=== PATIENT | male | born 1955 | race American Indian/Alaskan Native ===

== ENCOUNTER 2017-08-17 21:59 | Emergency (ER) | payer MEDICARE, MEDICAID ==
[2017-08-17] MEDS ORDERED: Acetaminophen/oxyCODONE 325-5 MG Tab PO ONE (22:00)
[2017-08-17] MEDS ORDERED: Ondansetron 4 MG Tab.DIS PO ONE (22:00)
[2017-08-18 00:50] VITALS: BP 143/99
[2017-08-18] MEDS ORDERED: Sodium Chloride 0.9% 1,000 ML IV ONE (01:12)
[2017-08-18] MEDS ORDERED: Iopamidol 612 MG/ML 75 ML Bottle IVPUSH ONE (01:18)
[2017-08-18] MEDS ORDERED: Ondansetron 4 MG/2 ML SDV IV ONE (01:29)
[2017-08-18] MEDS ORDERED: HYDROmorphone 1 MG/ML Syringe IVPUSH ONE (01:30)
[2017-08-18 01:53] LABS: CHLORIDE,CL 105 mmol/L (101-111); SODIUM,NA 138 mmol/L (135-145)
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
[2017-08-18] MEDS ORDERED: Ondansetron 4 MG Tab.DIS ONE (03:11)
[2017-08-18] MEDS ORDERED: Acetaminophen/oxyCODONE 325-5 MG Tab ONE (03:11)
== END 2017-08-18 03:20 | disposition home or self-care (01) ==
LOC: DL.ED 21:59
DX: K40.90 Unilateral inguinal hernia, without obstruction or gangrene, not specified as recurrent (principal); I10 Essential (primary) hypertension; J45.909 Unspecified asthma, uncomplicated; F17.210 Nicotine dependence, cigarettes, uncomplicated; K44.9 Diaphragmatic hernia without obstruction or gangrene; Z88.6 Allergy status to analgesic agent; Z79.899 Other long term (current) drug therapy; Z91.018 Allergy to other foods
CPT/HCPCS: 36415; 74177; 80053; 83605; 85025; 96361; 96374; 96375; 99284; A9270; J1170; J2405; J7030; Q9967; 99283

== ENCOUNTER 2018-12-15 20:07 | Emergency (ER) | payer MEDICARE, MEDICAID ==
--- NOTE | 2018-12-15 20:47 | EDM.PDOC ---
ED HPI GENERAL MEDICAL PROBLEM - General Chief Complaint: Genitourinary Problem Stated Complaint: KIDNEY PAIN [id number] Time Seen by Provider: 12/15/18 20:40 Source of Information: Reports: Patient History Limitations: Reports: No Limitations - History of Present Illness INITIAL COMMENTS - FREE TEXT/NARRATIVE: states hadn't been feeling well for a week, feels sick been having F/C on-off, also hard to urinate, h/o back pain taking Rx. sister state went to check on him and found him in bed still. Lower Back Pain Score (Numeric/FACES): 6 - Related Data Allergies Allergy/AdvReac Type Severity Reaction Status Date / Time ibuprofen Allergy Other Verified 12/15/18 20:31 pineapple Allergy Hives Verified 12/15/18 20:31 Home Meds: Home Meds Albuterol Sulfate [Proair Hfa] 2 puff INH Q4HR PRN 05/07/16 [History] Bimatoprost [LUMIGAN 0.01% Ophth Soln] 1 drop EYEBOTH BEDTIME 05/07/16 [History] Hydrochlorothiazide 25 mg PO DAILY 05/07/16 [History] Metoprolol Succinate 50 mg PO DAILY 05/07/16 [History] Zolpidem [Ambien] 10 mg PO BEDTIME 05/07/16 [History] amLODIPine [Norvasc] 5 mg PO DAILY 05/07/16 [History] oxyCODONE HCl [Oxycodone HCl] 15 mg PO QID PRN 05/07/16 [History] Esomeprazole Magnesium [Nexium] 40 mg PO BID 12/04/16 [History] Acetaminophen 1 - 2 tab PO Q4H PRN 12/14/16 [History] Past Medical History HEENT History: Reports: Other (See Below) 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 Cardiovascular History: Reports: Hypertension Respiratory History: Reports: Asthma Gastrointestinal History: Reports: GI Bleed, Other (See Below) Other Gastrointestinal History: hx stomach ulcers that burst Genitourinary History: Reports: Other (See Below) Other Genitourinary History: strong urine and trouble urinating Musculoskeletal History: Reports: Back Pain, Chronic Neurological History: Reports: None Psychiatric History: Reports: None Endocrine/Metabolic History: Reports: None Hematologic History: Reports: Anemia Immunologic History: Reports: None Oncologic (Cancer) History: Reports: None Dermatologic History: Reports: None - Infectious Disease History Infectious Disease History: Reports: Chicken Pox, Measles, Mumps - Past Surgical History Head Surgeries/Procedures: Reports: None GI Surgical History: Reports: Bariatric Procedure, Cholecystectomy, Colon, EGD Neurological Surgical History: Reports: Laminectomy, Lumbar Spine, Spinal Fusion Musculoskeletal Surgical History: Reports: Other (See Below) Other Musculoskeletal Surgeries/Procedures:: neck and 5 back surgeries Social & Family History - Family History Family Medical History: Noncontributory Cardiac: Reports: Bypass, CAD, Hypertension, [place] Endocrine/Metabolic: Reports: Diabetes, Type I Oncologic: Reports: Brain, Lung, Uterine - Caffeine Use Caffeine Use: Reports: Soda ED ROS GENERAL - Review of Systems Review Of Systems: ROS reveals no pertinent complaints other than HPI. ED EXAM, GENERAL - Physical Exam Exam: See Below Exam Limited By: No Limitations General Appearance: Alert, WD/WN, Mild Distress, Cachetic, Other (distraught) Eye Exam: Bilateral Eye: PERRL (pupils ER @ 4mm) Ears: Hearing Grossly Normal Throat/Mouth: Normal Voice, No Airway Compromise Head: Atraumatic Neck: Non-Tender, Full Range of Motion Respiratory/Chest: No Respiratory Distress, No Accessory Muscle Use, Rhonchi Cardiovascular: Regular Rate, Rhythm GI/Abdominal: Soft, Tender, Abnormal Bowel Sounds, Other (lower abd, BS hyper). No: Distended, Guarding, Rigid, Rebound Neurological: Alert, Oriented, Normal Cognition, Normal Gait, No Motor/Sensory Deficits Psychiatric: Flat Affect Skin Exam: Warm, Dry, Normal Color Lymphatic: No Adenopathy Course - Vital Signs Last Recorded V/S: Last Vital Signs Temp 35.8 C 12/15/18 20:59 Pulse 98 12/15/18 20:59 Resp 18 12/15/18 20:59 BP 125/71 12/15/18 20:59 Pulse Ox 100 12/15/18 20:59 - Orders/Labs/Meds Orders: Active Orders 24 hr Category Date Time Status CULTURE BLOOD [BC] Stat Lab 12/15/18 20:50 Results CULTURE BLOOD [BC] Stat Lab 12/15/18 21:45 Received CULTURE URINE [RM] Stat Lab 12/15/18 20:55 Received CULTURE URINE [RM] Stat Lab 12/15/18 22:14 Ordered Sodium Chloride 0.9% [Normal Saline] 1,000 ml Med 12/15/18 22:13 Ordered IV .BOLUS Medication Orders Sodium Chloride (Normal Saline) 1,000 mls @ 999 mls/hr IV .BOLUS ONE Stop: 12/15/18 23:13 Labs: Laboratory Tests 12/15/18 12/15/18 12/15/18 Range/Units 20:50 20:50 20:50 WBC 17.6 H (5.0-10.0) 10^3/uL RBC 4.85 (4.6-6.2) 10^6/uL Hgb 12.6 L D (14.0-18.0) g/dL Hct 37.7 L (40.0-54.0) % MCV 77.7 L D (80-100) fL MCH 26.0 L (27.0-34.0) pg MCHC 33.4 (33.0-35.0) g/dL Plt Count 657 H D (150-450) 10^3/uL Neut % (Auto) 79.9 H (42.2-75.2) % Lymph % (Auto) 11.8 L (20.5-50.1) % [place] % (Auto) 7.8 (2-8) % Eos % (Auto) 0.3 L (1.0-3.0) % Baso % (Auto) 0.2 (0.0-1.0) % Add Manual Diff Yes Neutrophils % (Manual) 60 (42-75) % Band Neutrophils % 16 % Lymphocytes % (Manual) 12 L (20-50) % Atypical Lymphs % 0 % Monocytes % (Manual) 11 H (2-8) % Eosinophils % (Manual) 1 (1-3) % Basophils % (Manual) 0 Platelet Estimate Increased Hypochromasia 1+ slight Poikilocytosis 1+ slight Sodium 129 L (135-145) mmol/L Potassium 2.3 L* D (3.6-5.0) mmol/L Chloride 96 L (101-111) mmol/L Carbon Dioxide 18.0 L (21.0-31.0) mmol/L Anion Gap 17.3 BUN 53 H (7-18) mg/dL Creatinine 2.2 H (0.6-1.3) mg/dL Est Cr Clr Drug Dosing 33.92 mL/min Estimated GFR (MDRD) 30 BUN/Creatinine Ratio 24.09 Glucose 252 H (74-105) mg/dL Lactic Acid 2.2 (0.5-2.2) mmol/L Calcium 7.8 L (8.4-10.2) mg/dl Total Bilirubin 0.6 (0.2-1.0) mg/dL AST 19 (10-42) IU/L ALT 14 (10-60) IU/L Alkaline Phosphatase 101 (42-121) IU/L Total Protein 8.6 H (6.7-8.2) g/dl Albumin 2.5 L (3.2-5.5) g/dl Globulin 6.1 Albumin/Globulin Ratio 0.41 Urine Color (YELLOW) Urine Appearance (CLEAR) Urine pH (5.0-9.0) Ur Specific [place] (1.005-1.030) Urine Protein (NEGATIVE) Urine Glucose (UA) (NEGATIVE) Urine Ketones (NEGATIVE) Urine Occult Blood (NEGATIVE) Urine Nitrite (NEGATIVE) Urine Bilirubin (NEGATIVE) Urine Urobilinogen (0.2-1.0) mg/dL Ur Leukocyte Esterase (NEGATIVE) Urine RBC /HPF Urine WBC (0-5/HPF) /HPF Ur Epithelial Cells /HPF Urine Bacteria (0-FEW/HPF) /HPF Urine Opiates Screen (NEGATIVE) Ur Oxycodone Screen (NEGATIVE) Urine Methadone Screen (NEGATIVE) Ur Barbiturates Screen (NEGATIVE) U Tricyclic Antidepress (NEGATIVE) Ur Phencyclidine Scrn (NEGATIVE) Ur Amphetamine Screen (NEGATIVE) U Methamphetamines Scrn (NEGATIVE) Urine MDMA Screen (NEGATIVE) U Benzodiazepines Scrn (NEGATIVE) Urine Cocaine Screen (NEGATIVE) U Marijuana (THC) Screen (NEGATIVE) Ethyl Alcohol < 5 mg/dL 12/15/18 12/15/18 Range/Units 20:55 20:55 WBC (5.0-10.0) 10^3/uL RBC (4.6-6.2) 10^6/uL Hgb (14.0-18.0) g/dL Hct (40.0-54.0) % MCV (80-100) fL MCH (27.0-34.0) pg MCHC (33.0-35.0) g/dL Plt Count (150-450) 10^3/uL Neut % (Auto) (42.2-75.2) % Lymph % (Auto) (20.5-50.1) % [place] % (Auto) (2-8) % Eos % (Auto) (1.0-3.0) % Baso % (Auto) (0.0-1.0) % Add Manual Diff Neutrophils % (Manual) (42-75) % Band Neutrophils % % Lymphocytes % (Manual) (20-50) % Atypical Lymphs % % Monocytes % (Manual) (2-8) % Eosinophils % (Manual) (1-3) % Basophils % (Manual) Platelet Estimate Hypochromasia Poikilocytosis Sodium (135-145) mmol/L Potassium (3.6-5.0) mmol/L Chloride (101-111) mmol/L Carbon Dioxide (21.0-31.0) mmol/L Anion Gap BUN (7-18) mg/dL Creatinine (0.6-1.3) mg/dL Est Cr Clr Drug Dosing mL/min Estimated GFR (MDRD) BUN/Creatinine Ratio Glucose (74-105) mg/dL Lactic Acid (0.5-2.2) mmol/L Calcium (8.4-10.2) mg/dl Total Bilirubin (0.2-1.0) mg/dL AST (10-42) IU/L ALT (10-60) IU/L Alkaline Phosphatase (42-121) IU/L Total Protein (6.7-8.2) g/dl Albumin (3.2-5.5) g/dl Globulin Albumin/Globulin Ratio Urine Color Yellow (YELLOW) Urine Appearance Cloudy (CLEAR) Urine pH 6.0 (5.0-9.0) Ur Specific [place] 1.020 (1.005-1.030) Urine Protein 30 H (NEGATIVE) Urine Glucose (UA) Negative (NEGATIVE) Urine Ketones Negative (NEGATIVE) Urine Occult Blood Trace-intact H (NEGATIVE) Urine Nitrite Positive H (NEGATIVE) Urine Bilirubin Negative (NEGATIVE) Urine Urobilinogen 1.0 (0.2-1.0) mg/dL Ur Leukocyte Esterase Moderate H (NEGATIVE) Urine RBC 0-5 /HPF Urine WBC Packed H (0-5/HPF) /HPF Ur Epithelial Cells Few /HPF Urine Bacteria Many H (0-FEW/HPF) /HPF Urine Opiates Screen Negative (NEGATIVE) Ur Oxycodone Screen Negative (NEGATIVE) Urine Methadone Screen Negative (NEGATIVE) Ur Barbiturates Screen Negative (NEGATIVE) U Tricyclic Antidepress Negative (NEGATIVE) Ur Phencyclidine Scrn Negative (NEGATIVE) Ur Amphetamine Screen Positive H (NEGATIVE) U Methamphetamines Scrn Positive H (NEGATIVE) Urine MDMA Screen Negative (NEGATIVE) U Benzodiazepines Scrn Negative (NEGATIVE) Urine Cocaine Screen Negative (NEGATIVE) U Marijuana (THC) Screen Negative (NEGATIVE) Ethyl Alcohol mg/dL Meds: Medications Generic Name Dose Route Start Last Admin Trade Name Freq PRN Reason Stop Dose Admin Sodium Chloride 1,000 mls @ 999 mls/hr 12/15/18 22:13 Normal Saline IV 12/15/18 23:13 .BOLUS ONE Discontinued Medications Generic Name Dose Route Start Last Admin Trade Name Freq PRN Reason Stop Dose Admin Ceftriaxone Sodium 1,000 mg 12/15/18 22:13 Rocephin IVPUSH 12/15/18 22:14 ONETIME ONE Lactated Ringer's 1,000 mls @ 999 mls/hr 12/15/18 20:56 12/15/18 21:07 Ringers, Lactated IV 12/15/18 21:56 999 mls/hr .BOLUS ONE Administration Morphine Sulfate 2 mg 12/15/18 21:43 12/15/18 21:57 Morphine IVPUSH 12/15/18 21:44 2 mg ONETIME ONE Administration Ondansetron HCl 4 mg 12/15/18 21:43 12/15/18 21:55 Zofran IV 12/15/18 21:44 4 mg ONETIME ONE Administration Potassium Chloride 40 meq 12/15/18 21:25 12/15/18 21:41 Klor-Con 10 PO 12/15/18 21:26 40 meq ONETIME ONE Administration - Re-Assessments/Exams Free Text/Narrative Re-Assessment/Exam: 12/15/18 22:[address] Lagos @ who kindly accepted pt. Departure - Departure Time of Disposition: 22:15 Disposition: DC/Tfer to Acute Hospital 02 Condition: Fair Clinical Impression: UTI, Urinary tract infectious disease, Hyponatremia, Hypokalemia, Renal insufficiency syndrome - Discharge Information Forms: Interfacility Transfer EMTALA - My Orders Last 24 Hours: My Active Orders 12/15/18 20:50 CULTURE BLOOD [BC] Stat 12/15/18 20:55 CULTURE URINE [RM] Stat 12/15/18 21:45 CULTURE BLOOD [BC] Stat 12/15/18 22:13 Sodium Chloride 0.9% [Normal Saline] 1,000 ml IV .BOLUS 12/15/18 22:14 CULTURE URINE [RM] Stat - Assessment/Plan Last 24 Hours: My Active Orders 12/15/18 20:50 CULTURE BLOOD [BC] Stat 12/15/18 20:55 CULTURE URINE [RM] Stat 12/15/18 21:45 CULTURE BLOOD [BC] Stat 12/15/18 22:13 Sodium Chloride 0.9% [Normal Saline] 1,000 ml IV .BOLUS 12/15/18 22:14 CULTURE URINE [RM] Stat
[2018-12-15] MEDS ORDERED: Lactated Ringers 1,000 ML IV ONE (20:56)
[2018-12-15 21:05] VITALS: BP 125/71
[2018-12-15 21:20] LABS: CHLORIDE,CL 96 mmol/L (101-111); SODIUM,NA 129 mmol/L (135-145)
[2018-12-15 21:22] LABS: ANION GAP 17.3
[2018-12-15] MEDS ORDERED: Potassium Chloride 10 MEQ Tab.ER PO ONE (21:25)
[2018-12-15] MEDS ORDERED: Morphine 2 MG/ML Syringe IVPUSH ONE (21:43)
[2018-12-15] MEDS ORDERED: Ondansetron 4 MG/2 ML SDV IV ONE (21:43)
[2018-12-15] MEDS ORDERED: Sodium Chloride 0.9% 1,000 ML IV ONE (22:13)
[2018-12-15] MEDS ORDERED: cefTRIAXone 500 MG Vial IVPUSH ONE (22:13)
== END 2018-12-15 23:10 ==
LOC: DL.ED 20:07
DX: N39.0 Urinary tract infection, site not specified (principal); E87.1 Hypo-osmolality and hyponatremia; E87.6 Hypokalemia; N28.9 Disorder of kidney and ureter, unspecified; Z91.018 Allergy to other foods; Z79.899 Other long term (current) drug therapy
CPT/HCPCS: 36415; 51702; 71045; 80053; 80305; 81001; 83605; 85025; 87040; 87086; 87088; 87186; 96361; 96374; 96375; 99284; A9270; G0480; J0696; J2270; J2405; J7030; J7120

== ENCOUNTER 2020-09-11 03:20 | Emergency (ER) | payer MEDICARE, MEDICAID ==
[2020-09-11 03:33] VITALS: BP 120/76; PULSE 88
--- NOTE | 2020-09-11 03:54 | EDM.PDOC ---
ED HPI GENERAL MEDICAL PROBLEM - General Chief Complaint: Lower Extremity Injury/Pain Stated Complaint: BLOOD CLOT IN LEG Time Seen by Provider: 09/11/20 03:30 Source of Information: Reports: Patient History Limitations: Reports: No Limitations - History of Present Illness INITIAL COMMENTS - FREE TEXT/NARRATIVE: ED ambulatory, c/o pain swelling and redness to left lower leg, worried about blood clot. Reports scraping leg on box on Tuesday, noted slight redness on Tuesday worse tonight. No prior hx clotting disorder, No hx skin infections. Remote gastric bypass surgery. Recent exposure to COVID via niece though states not close contact. No fever or chills or SOB. Has had cough x 1 week, started with sneezing. Treatments ELASTIC TAPE INSERTER: Reports: Other (see below) Other Treatments ELASTIC TAPE INSERTER: Oxycodone Left Lower Leg Pain Score (Numeric/FACES): 7 - Related Data Allergies Allergy/AdvReac Type Severity Reaction Status Date / Time ibuprofen Allergy Bleeding Verified 09/11/20 03:33 Home Meds: Home Meds Albuterol Sulfate [Proair Hfa] 2 puff INH QID PRN 12/23/18 [History] Bimatoprost [Lumigan 0.03% Ophth Soln] 1 drop EYEBOTH BEDTIME 12/23/18 [History] Ciprofloxacin HCl [Cipro] 500 mg PO BID 12/23/18 [History] Esomeprazole [NexIUM] 40 mg PO DAILY 12/23/18 [History] Metoprolol Succinate 50 mg PO QPM 12/23/18 [History] Tamsulosin [Tamsulosin 24 Hr] 0.4 mg PO QPM 12/23/18 [History] amLODIPine [Norvasc] 5 mg PO DAILY 12/23/18 [History] hydroCHLOROthiazide [Hydrochlorothiazide] 25 mg PO DAILY 12/23/18 [History] oxyCODONE 15 mg PO QID 12/23/18 [History] Past Medical History Cardiovascular History: Reports: Hypertension Gastrointestinal History: Reports: GERD Genitourinary History: Reports: BPH Musculoskeletal History: Reports: Back Pain, Chronic - Past Surgical History GI Surgical History: Reports: Bariatric Procedure, Cholecystectomy Social & Family History - Caffeine Use Caffeine Use: Reports: None - Recreational Drug Use Recreational Drug Use: No Review of Systems - Review of Systems Review Of Systems: See Below ED EXAM, GENERAL - Physical Exam Exam: See Below Exam Limited By: No Limitations General Appearance: Alert, Anxious Eye Exam: Bilateral Eye: PERRL Ears: Normal External Exam Nose: Normal Inspection Throat/Mouth: Normal Inspection Head: Atraumatic, Normocephalic Neck: Normal Inspection Respiratory/Chest: No Respiratory Distress, Rhonchi (right lower), Other (rare lose bronchial cough) Cardiovascular: Regular Rate, Rhythm GI/Abdominal: Normal Bowel Sounds, Soft Extremities: Normal Inspection, Normal Range of Motion, Pedal Edema (left ankle). No: Kisha's Sign Neurological: Alert, Oriented, Normal Cognition, No Motor/Sensory Deficits Psychiatric: Normal Affect, Anxious Skin Exam: Wound/Incision ([id number] abrasion yellow crust with 16cm x 5cm red area anterior medial lower marquis on left), Zoster-Like Rash (right anterioo lower marquis, scabbed slight y erythema 2x2cm medial ankle) Course - Vital Signs Last Recorded V/S: Last Vital Signs Temp 97.2 F 09/11/20 03:26 Pulse 88 09/11/20 03:26 Resp 19 09/11/20 03:26 BP 120/76 09/11/20 03:26 Pulse Ox 98 09/11/20 03:26 - Orders/Labs/Meds Orders: Active Orders 24 hr Category Date Time Status CULTURE BLOOD [BC] Stat Lab 09/11/20 03:38 Received CULTURE BLOOD [BC] Stat Lab 09/11/20 04:21 Received Blood Culture x2 Reflex Set [OM.PC] Stat Oth 09/11/20 03:39 Ordered Labs: Laboratory Tests 09/11/20 09/11/20 09/11/20 Range/Units 03:38 03:38 03:38 WBC 10.2 H (5.0-10.0) 10^3/uL RBC 4.81 (4.6-6.2) 10^6/uL Hgb 13.4 L (14.0-18.0) g/dL Hct 41.1 (40.0-54.0) % MCV 85.4 (80-100) fL MCH 27.9 (27.0-34.0) pg MCHC 32.6 L (33.0-35.0) g/dL Plt Count 285 (150-450) 10^3/uL Neut % (Auto) 64.3 (42.2-75.2) % Lymph % (Auto) 23.9 (20.5-50.1) % [place] % (Auto) 9.8 H (2-8) % Eos % (Auto) 1.7 (1.0-3.0) % Baso % (Auto) 0.3 (0.0-1.0) % D-Dimer, Quantitative 432 H (0-400) ng/mL Sodium 135 L (136-145) mmol/L Potassium 3.6 (3.5-5.1) mmol/L Chloride 99 (98-107) mmol/L Carbon Dioxide 26 (21-32) mmol/L Anion Gap 13.6 H (7-13) mEq/L BUN 35 H (7-18) mg/dL Creatinine 2.56 H (0.70-1.30) mg/dL Est Cr Clr Drug Dosing 28.38 mL/min Estimated GFR (MDRD) 25 BUN/Creatinine Ratio 13.7 (No establ ref range) Glucose 160 H (74-99) mg/dL Lactic Acid (0.4-2.0) mmol/L Calcium 8.2 L (8.5-10.1) mg/dL Total Bilirubin 0.4 (0.2-1.0) mg/dL AST 38 H (15-37) U/L ALT 34 (16-63) U/L Alkaline Phosphatase 186 H (46-116) U/L Total Protein 7.9 (6.4-8.2) g/dL Albumin 3.2 L (3.4-5.0) g/dL Globulin 4.7 Albumin/Globulin Ratio 0.68 SARS CoV-2 RNA Rapid COURTNEY (NEGATIVE) 09/11/20 09/11/20 Range/Units 03:38 03:44 WBC (5.0-10.0) 10^3/uL RBC (4.6-6.2) 10^6/uL Hgb (14.0-18.0) g/dL Hct (40.0-54.0) % MCV (80-100) fL MCH (27.0-34.0) pg MCHC (33.0-35.0) g/dL Plt Count (150-450) 10^3/uL Neut % (Auto) (42.2-75.2) % Lymph % (Auto) (20.5-50.1) % [place] % (Auto) (2-8) % Eos % (Auto) (1.0-3.0) % Baso % (Auto) (0.0-1.0) % D-Dimer, Quantitative (0-400) ng/mL Sodium (136-145) mmol/L Potassium (3.5-5.1) mmol/L Chloride (98-107) mmol/L Carbon Dioxide (21-32) mmol/L Anion Gap (7-13) mEq/L BUN (7-18) mg/dL Creatinine (0.70-1.30) mg/dL Est Cr Clr Drug Dosing mL/min Estimated GFR (MDRD) BUN/Creatinine Ratio (No establ ref range) Glucose (74-99) mg/dL Lactic Acid 1.6 (0.4-2.0) mmol/L Calcium (8.5-10.1) mg/dL Total Bilirubin (0.2-1.0) mg/dL AST (15-37) U/L ALT (16-63) U/L Alkaline Phosphatase (46-116) U/L Total Protein (6.4-8.2) g/dL Albumin (3.4-5.0) g/dL Globulin Albumin/Globulin Ratio SARS CoV-2 RNA Rapid COURTNEY Negative (NEGATIVE) Meds: Medications Discontinued Medications Generic Name Dose Route Start Last Admin Trade Name Freq PRN Reason Stop Dose Admin Doxycycline Monohydrate 100 mg 09/11/20 04:37 09/11/20 04:47 Doxycycline Monohydrate PO 09/11/20 04:38 100 mg ONETIME ONE Administration Departure - Departure Time of Disposition: 04:37 Disposition: Home, Self-Care 01 Condition: Good Clinical Impression: URI (upper respiratory infection) Qualifiers: URI type: unspecified viral URI Qualified Code(s): J06.9 - Acute upper respiratory infection, unspecified Cellulitis Qualifiers: Site of cellulitis: extremity Site of cellulitis of extremity: lower extremity Laterality: left Qualified Code(s): L03.116 - Cellulitis of left lower limb - Discharge Information *PRESCRIPTION DRUG MONITORING PROGRAM REVIEWED*: No *COPY OF PRESCRIPTION DRUG MONITORING REPORT IN PATIENT BRENNA: No Instructions: Cellulitis, Adult, [id number] Forms: ED Department Discharge Additional Instructions: doxycycline 100mg one twice daily for 10 days elevate extremity follow up for recheck in clinic Tuesday, sooner if increased redness swelling or severe pain tylenol 650mg every 4 hours as needed for discomfort follow up with primary care regarding kidney function Sepsis Event Note (ED) - Evaluation Sepsis Screening Result: No Definite Risk - Focused Exam Vital Signs: Vital Signs Temp Pulse Resp BP Pulse Ox 09/11/20 03:26 97.2 F 88 19 120/76 98 - My Orders Last 24 Hours: My Active Orders 09/11/20 03:38 CULTURE BLOOD [BC] Stat 09/11/20 03:39 Blood Culture x2 Reflex Set [OM.PC] Stat 09/11/20 04:21 CULTURE BLOOD [BC] Stat - Assessment/Plan Last 24 Hours: My Active Orders 09/11/20 03:38 CULTURE BLOOD [BC] Stat 09/11/20 03:39 Blood Culture x2 Reflex Set [OM.PC] Stat 09/11/20 04:21 CULTURE BLOOD [BC] Stat
[2020-09-11 04:19] LABS: ANION GAP 13.6 mEq/L (7-13)
[2020-09-11] MEDS ORDERED: Doxycycline Monohydrate 100 MG Cap PO ONE (04:37)
== END 2020-09-11 04:51 | disposition home or self-care (01) ==
LOC: DL.ED 03:20 → MERGE 03:20 → DL.ED 04:51
DX: L03.116 Cellulitis of left lower limb (principal); J06.9 Acute upper respiratory infection, unspecified; I10 Essential (primary) hypertension; K21.9 Gastro-esophageal reflux disease without esophagitis; N40.0 Benign prostatic hyperplasia without lower urinary tract symptoms; Z20.828 Contact with and (suspected) exposure to other viral communicable diseases; Z88.6 Allergy status to analgesic agent; Z79.899 Other long term (current) drug therapy
CPT/HCPCS: 36415; 80053; 83605; 85025; 85379; 87040; 99283; 99284; A9270; U0002

== ENCOUNTER 2023-02-12 14:04 | Emergency (ER) | payer MEDICARE, MEDICAID | END 2023-02-12 14:29 | disposition left against medical advice (07) | LOC: DL.ED 14:04 | DX: Z53.21 Procedure and treatment not carried out due to patient leaving prior to being seen by health care provider (principal) ==

== ENCOUNTER 2024-01-03 07:15 | Day surgery (SDC) | payer MEDICARE, MEDICAID ==
[2024-01-03] MEDS ORDERED: fentaNYL 100 MCG/2 ML SDV IV ONE (07:16)
[2024-01-03] MEDS ORDERED: Midazolam 1 MG/ML 2 ML SDV IV ONE (07:16)
[2024-01-03] MEDS ORDERED: Midazolam 1 MG/ML 2 ML SDV ONE (07:49)
[2024-01-03] MEDS ORDERED: fentaNYL 100 MCG/2 ML SDV ONE (07:49)
[2024-01-03] MEDS: Dextrose 5%-0.45% NaCl 1,000 ML IV SCH (07:57)
[2024-01-03] MEDS: fentaNYL 100 MCG/2 ML SDV IV ONE ×2 (08:00→08:01)
[2024-01-03] MEDS: Midazolam 1 MG/ML 2 ML SDV IV ONE ×2 (08:01→08:02)
[2024-01-03 09:20] VITALS: BP 138/100; PULSE 97
== END 2024-01-03 09:41 | disposition home or self-care (01) ==
LOC: DL.ENDO 07:15
PROVIDERS: ATTEND Internal Medicine Gastroenterology
DX: R13.10 Dysphagia, unspecified (principal); E11.9 Type 2 diabetes mellitus without complications; N18.9 Chronic kidney disease, unspecified; Z79.899 Other long term (current) drug therapy; Z91.018 Allergy to other foods; Z88.6 Allergy status to analgesic agent
CPT/HCPCS: 43239; 87077; 88305; J2250; J3010; J7042

== ENCOUNTER 2024-06-07 20:18 | Emergency (ER) | payer MEDICARE, MEDICAID ==
[2024-06-07 21:07] VITALS: BP 149/87; PULSE 92
[2024-06-07 21:32] LABS: BASOPHILS PERCENT AUTO 0.3 % (0.0-1.0); HEMATOCRIT 44.2 % (40.0-54.0); HEMOGLOBIN 14.4 g/dL (14.0-18.0); LYMPHOCYTES PERCENT AUTO 33.3 % (20.5-50.1); MEAN CORPUSCULAR HEMOGLOBIN 27.7 pg (27.0-34.0); MEAN CORPUSCULAR HGB CONC 32.6 g/dL (33.0-35.0); MONOCYTES PERCENT AUTO 9.2 % (2-8); NEUTROPHILS PERCENT AUTO 56.2 % (42.2-75.2); PLATELET COUNT,PLT 355 10^3/uL (150-450); WHITE BLOOD CELL COUNT,WBC 10.1 10^3/uL (5.0-10.0)
[2024-06-07] MEDS: Sodium Chloride 0.9% 1,000 ML IV ONE (21:48)
[2024-06-07 21:53] LABS: A/G RATIO 0.58; ALBUMIN 2.9 g/dL (3.4-5.0); BILIRUBIN TOTAL 0.3 mg/dL (0.2-1.0); BUN/CREATININE RATIO 25.1 (No establ ref range); CALCIUM 8.4 mg/dL (8.5-10.1); CREATININE 2.11 mg/dL (0.70-1.30); EST CRCL DRUG DOSING (CG) 32.58 mL/min; MAGNESIUM 2.3 mg/dL (1.8-2.4); PROTEIN TOTAL,TP 7.9 g/dL (6.4-8.2)
[2024-06-07 21:54] LABS: LACTIC ACID 0.6 mmol/L (0.4-2.0)
[2024-06-07] MEDS: Ondansetron 4 MG/2 ML SDV IVPUSH ONE (22:22)
[2024-06-07 22:28] LABS: APPEARANCE,URINE CLEAR (CLEAR); BILIRUBIN,URINE NEGATIVE (NEGATIVE); COLOR,URINE YELLOW (YELLOW); GLUCOSE,URINE 500 (NEGATIVE); KETONES,URINE NEGATIVE (NEGATIVE); LEUKOCYTE ESTERASE,URINE NEGATIVE (NEGATIVE); NITRITE,URINE NEGATIVE (NEGATIVE); OCCULT BLOOD,URINE NEGATIVE (NEGATIVE); PH,URINE 5.5 (5.0-9.0); PROTEIN,URINE >=300 (NEGATIVE); UROBILINOGEN,URINE 0.2 mg/dL (0.2-1.0)
[2024-06-07 22:33] LABS: AMPHETAMINES,URINE NEGATIVE (NEGATIVE); BARBITURATES,URINE NEGATIVE (NEGATIVE); BENZODIAZEPINE,URINE NEGATIVE (NEGATIVE); MDMA (ECSTASY), URINE NEGATIVE (NEGATIVE); METHADONE,URINE NEGATIVE (NEGATIVE); METHAMPHETAMINES,URINE POSITIVE (NEGATIVE); OPIATES,URINE NEGATIVE (NEGATIVE); OXYCODONE,URINE NEGATIVE (NEGATIVE); PHENCYCLIDINE,URINE NEGATIVE (NEGATIVE); TCA,URINE NEGATIVE (NEGATIVE)
[2024-06-07 22:55] LABS: AMORPHOUS SEDIMENT,URINE FEW /HPF (NOT SEEN); BACTERIA,URINE FEW /HPF (0-FEW/HPF); EPITHELIAL CELLS,URINE FEW /HPF (NOT SEEN); HYALINE CASTS,URINE FEW; MUCUS,URINE FEW /LPF (NOT SEEN); RBC,URINE 0-5 /HPF (0-5)
== END 2024-06-07 23:02 | disposition swing bed (61) ==
LOC: DL.ED 20:18
DX: E11.65 Type 2 diabetes mellitus with hyperglycemia (principal); E86.0 Dehydration; E11.22 Type 2 diabetes mellitus with diabetic chronic kidney disease; I12.9 Hypertensive chronic kidney disease with stage 1 through stage 4 chronic kidney disease, or unspecified chronic kidney disease; N18.9 Chronic kidney disease, unspecified; J45.909 Unspecified asthma, uncomplicated; K21.9 Gastro-esophageal reflux disease without esophagitis; F17.210 Nicotine dependence, cigarettes, uncomplicated; Z79.84 Long term (current) use of oral hypoglycemic drugs; Z79.899 Other long term (current) drug therapy; Z88.8 Allergy status to other drugs, medicaments and biological substances; Z91.018 Allergy to other foods
CPT/HCPCS: 36415; 71045; 80053; 80305-QW; 81001; 83605; 83690; 83735; 84484; 85025; 87804; 93005; 93010; 96361; 96374; 99284; 99284-25; J2405; J7030; U0002

== ENCOUNTER 2025-01-22 21:39 | Emergency (ER) | payer MEDICARE, MEDICAID ==
[2025-01-22] MEDS ORDERED: Albuterol/Ipratropium 3.0-0.5 MG/3 ML Neb Soln NEB ONE (21:45)
== END 2025-01-22 21:54 | disposition left against medical advice (07) ==
LOC: DL.ED 21:39
DX: R06.02 Shortness of breath (principal); R05.9 Cough, unspecified; R50.9 Fever, unspecified; I12.9 Hypertensive chronic kidney disease with stage 1 through stage 4 chronic kidney disease, or unspecified chronic kidney disease; N18.9 Chronic kidney disease, unspecified; J45.909 Unspecified asthma, uncomplicated; K21.9 Gastro-esophageal reflux disease without esophagitis; F17.210 Nicotine dependence, cigarettes, uncomplicated; Z98.84 Bariatric surgery status; Z90.49 Acquired absence of other specified parts of digestive tract; Z88.6 Allergy status to analgesic agent; Z91.018 Allergy to other foods; Z79.51 Long term (current) use of inhaled steroids; Z79.84 Long term (current) use of oral hypoglycemic drugs; Z79.899 Other long term (current) drug therapy
CPT/HCPCS: 99283; 99285

== ENCOUNTER 2025-05-18 11:17 | Emergency (ER) | payer MEDICARE, MEDICAID ==
[2025-05-18] MEDS ORDERED: Dexamethasone 4 MG Tab PO ONE (11:18)
[2025-05-18] MEDS ORDERED: Dexamethasone 4 MG Tab ONE (12:16)
[2025-05-18] MEDS: Dexamethasone 4 MG/ML SDV IM ONE (12:19)
[2025-05-18 12:32] VITALS: BP 146/85; PULSE 96
== END 2025-05-18 12:30 | disposition home or self-care (01) ==
LOC: DL.ED 11:17
DX: J02.9 Acute pharyngitis, unspecified (principal); I12.9 Hypertensive chronic kidney disease with stage 1 through stage 4 chronic kidney disease, or unspecified chronic kidney disease; N18.9 Chronic kidney disease, unspecified; J45.909 Unspecified asthma, uncomplicated; K21.9 Gastro-esophageal reflux disease without esophagitis; Z79.899 Other long term (current) drug therapy; Z79.84 Long term (current) use of oral hypoglycemic drugs; Z88.6 Allergy status to analgesic agent; Z91.018 Allergy to other foods
CPT/HCPCS: 87081; 87430; 96372; 99283; 99284; J1100; J8540

== ENCOUNTER 2025-05-20 19:08 | Emergency (ER) | payer MEDICARE, MEDICAID ==
[2025-05-20 19:44] VITALS: BP 173/90; PULSE 96
== END 2025-05-20 19:59 | disposition home or self-care (01) ==
LOC: DL.ED 19:08
DX: Z02.89 Encounter for other administrative examinations (principal); I12.9 Hypertensive chronic kidney disease with stage 1 through stage 4 chronic kidney disease, or unspecified chronic kidney disease; N18.9 Chronic kidney disease, unspecified; K21.9 Gastro-esophageal reflux disease without esophagitis; Z88.8 Allergy status to other drugs, medicaments and biological substances; Z91.018 Allergy to other foods; Z79.899 Other long term (current) drug therapy; Z90.49 Acquired absence of other specified parts of digestive tract
CPT/HCPCS: 99282; 99283

== ENCOUNTER 2025-07-20 19:15 | Emergency (ER) | payer MEDICARE, MEDICAID ==
[2025-07-20 19:33] VITALS: BP 165/96; PULSE 81
[2025-07-20 20:36] LABS: BASOPHILS PERCENT AUTO 0.2 % (0.0-1.0); EOSINOPHILS PERCENT AUTO 0.3 % (1.0-3.0); LYMPHOCYTES PERCENT AUTO 9.7 % (20.5-50.1); MONOCYTES PERCENT AUTO 8.8 % (2-8); NEUTROPHILS PERCENT AUTO 81.0 % (42.2-75.2); PLATELET COUNT,PLT 376 10^3/uL (150-450); RED BLOOD CELL COUNT 4.28 10^6/uL (4.6-6.2); WHITE BLOOD CELL COUNT,WBC 9.7 10^3/uL (5.0-10.0)
[2025-07-20 20:58] LABS: ALANINE AMINOTRANSFERASE,ALT 18 U/L (16-63); ASPARTATE AMNIOTRANSFERASE,AST 21 U/L (15-37); BILIRUBIN TOTAL 0.2 mg/dL (0.2-1.0); BLOOD UREA NITROGEN,BUN 38 mg/dL (7-18); CARBON DIOXIDE,CO2 21 mmol/L (21-32); CHLORIDE,CL 104 mmol/L (98-107); CREATININE 2.20 mg/dL (0.70-1.30); GLUCOSE RANDOM 75 mg/dL (70-99); POTASSIUM,K 4.8 mmol/L (3.5-5.1); PROTEIN TOTAL,TP 7.5 g/dL (6.4-8.2); SODIUM,NA 136 mmol/L (136-145)
[2025-07-20 20:59] LABS: A/G RATIO 0.70; ESTIMATED GFR 31 mL/min (>=60)
[2025-07-20 21:02] LABS: LACTIC ACID 0.7 mmol/L (0.4-2.0)
== END 2025-07-20 21:24 | disposition home or self-care (01) ==
LOC: DL.ED 19:15
DX: M77.8 Other enthesopathies, not elsewhere classified (principal); I12.9 Hypertensive chronic kidney disease with stage 1 through stage 4 chronic kidney disease, or unspecified chronic kidney disease; N18.32 Chronic kidney disease, stage 3b; D50.9 Iron deficiency anemia, unspecified; J45.909 Unspecified asthma, uncomplicated; K21.9 Gastro-esophageal reflux disease without esophagitis; F17.210 Nicotine dependence, cigarettes, uncomplicated; Z90.49 Acquired absence of other specified parts of digestive tract; Z91.018 Allergy to other foods; Z88.6 Allergy status to analgesic agent; Z79.899 Other long term (current) drug therapy; Z79.84 Long term (current) use of oral hypoglycemic drugs
CPT/HCPCS: 36415; 73110-RT; 80053; 83605; 84550; 85025; 86140; 99283; 99284

== ENCOUNTER 2025-10-18 16:24 | Observation (INO) | payer MEDICARE, MEDICAID ==
[2025-10-18 16:59] LABS: BASOPHILS PERCENT AUTO 0.1 % (0.0-1.0); EOSINOPHILS PERCENT AUTO 1.6 % (1.0-3.0); LYMPHOCYTES PERCENT AUTO 11.3 % (20.5-50.1); MONOCYTES PERCENT AUTO 8.8 % (2-8); NEUTROPHILS PERCENT AUTO 78.2 % (42.2-75.2); PLATELET COUNT,PLT 332 10^3/uL (150-450); RED BLOOD CELL COUNT 4.13 10^6/uL (4.6-6.2); WHITE BLOOD CELL COUNT,WBC 6.7 10^3/uL (5.0-10.0)
[2025-10-18 17:18] LABS: ALANINE AMINOTRANSFERASE,ALT 15.0 U/L (16-63); ASPARTATE AMNIOTRANSFERASE,AST 18.0 U/L (15-37); BILIRUBIN TOTAL 0.1 mg/dL (0.2-1.0); BLOOD UREA NITROGEN,BUN 34.0 mg/dL (7-18); CARBON DIOXIDE,CO2 24.0 mmol/L (21-32); CHLORIDE,CL 102.0 mmol/L (98-107); CREATININE 2.99 mg/dL (0.70-1.30); EST CRCL DRUG DOSING (CG) 22.66 mL/min; GLUCOSE RANDOM 137.0 mg/dL (70-99); POTASSIUM,K 4.3 mmol/L (3.5-5.1); PROTEIN TOTAL,TP 6.9 g/dL (6.4-8.2); SODIUM,NA 136.0 mmol/L (136-145)
[2025-10-18 17:31] LABS: PHOSPHORUS 5.6 mg/dL (2.6-4.7)
[2025-10-18 17:35] LABS: ESTIMATED GFR 22.0 mL/min (>=60)
[2025-10-18 17:37] LABS: A/G RATIO 0.6
[2025-10-18] MEDS: Magnesium Sulfate 2 GM/50 mL 2 GM in Premix Bag 1 BAG IV ONE (18:14)
[2025-10-18] MEDS: Calcium Gluconate 10% 1 GM/10 ML SDV IVPUSH ONE (18:14)
[2025-10-18] MEDS ORDERED: Sennosides/Docusate Sodium 50-8.6 MG Tab PO PRN (19:35)
[2025-10-18] MEDS ORDERED: Ondansetron 4 MG/2 ML SDV IVPUSH PRN (19:35)
[2025-10-18] MEDS ORDERED: Sodium Chloride 0.9% 10 ML Syringe FLUSH PRN (19:35)
[2025-10-18] MEDS ORDERED: 50% Dextrose in Water 50 ML Syringe IVPUSH PRN (20:38)
[2025-10-18 20:56] LABS: IRON,FE 18.0 ug/dL (65-175); PERCENT FE SATURATION 4.2 % (20.0-50.0)
[2025-10-18 21:11] LABS: FOLIC ACID 10.1 ng/mL (8.6-58.9); T4 FREE 0.97 ng/dL (0.76-1.46); TSH ULTRASENSITIVE 8.99 uIU/mL (0.36-3.74)
[2025-10-18] MEDS ORDERED: Calcium Gluconate 10% 1 GM/10 ML SDV IVPUSH STA (21:25)
[2025-10-18] MEDS: Sodium Chloride 0.9% 10 ML Syringe FLUSH SCH (22:18)
[2025-10-19 06:37] LABS: BASOPHILS PERCENT AUTO 0.4 % (0.0-1.0); EOSINOPHILS PERCENT AUTO 2.2 % (1.0-3.0); LYMPHOCYTES PERCENT AUTO 21.5 % (20.5-50.1); MONOCYTES PERCENT AUTO 10.7 % (2-8); NEUTROPHILS PERCENT AUTO 65.2 % (42.2-75.2); PLATELET COUNT,PLT 337 10^3/uL (150-450); RED BLOOD CELL COUNT 4.24 10^6/uL (4.6-6.2); WHITE BLOOD CELL COUNT,WBC 5.4 10^3/uL (5.0-10.0)
[2025-10-19 06:53] LABS: ALANINE AMINOTRANSFERASE,ALT 17.0 U/L (16-63); ASPARTATE AMNIOTRANSFERASE,AST 18.0 U/L (15-37); BILIRUBIN TOTAL 0.1 mg/dL (0.2-1.0); BLOOD UREA NITROGEN,BUN 29.0 mg/dL (7-18); CARBON DIOXIDE,CO2 26.0 mmol/L (21-32); CHLORIDE,CL 107.0 mmol/L (98-107); CREATININE 2.41 mg/dL (0.70-1.30); EST CRCL DRUG DOSING (CG) 28.11 mL/min; GLUCOSE RANDOM 85.0 mg/dL (70-99); POTASSIUM,K 4.4 mmol/L (3.5-5.1); PROTEIN TOTAL,TP 6.5 g/dL (6.4-8.2); SODIUM,NA 141.0 mmol/L (136-145)
[2025-10-19 06:54] LABS: A/G RATIO 0.51; ESTIMATED GFR 28.0 mL/min (>=60)
[2025-10-19] MEDS: Potassium Chloride 10 MEQ Tab.ER PO SCH (08:24)
[2025-10-19] MEDS: Furosemide 40 MG/4 ML VIAL IVPUSH SCH (08:24)
[2025-10-19] MEDS ORDERED: FLU (Flulaval) 25-26(6MOS UP)/PF 45 MCG/0.5 ML Syringe IM ONE (10:00)
[2025-10-19] MEDS: Calcium Gluconate 10% 1 GM/10 ML SDV IVPUSH STA (11:14)
[2025-10-19 12:10] VITALS: BP 177/78; PULSE 73
[2025-10-19] MEDS: FLU (Fluad Triv) 25-26 (65UP)/MF59C/PF 45 MCG/0.5 ML Syringe IM ONE (12:24)
== END 2025-10-19 12:55 | disposition home or self-care (01) ==
LOC: DL.ED 16:24 → DL.MS 18:44 → DL.ED 19:18
PROVIDERS: ADMIT Student in an Organized Health Care Education/Training Program; ATTEND Student in an Organized Health Care Education/Training Program
DX: E83.51 Hypocalcemia (principal); D50.9 Iron deficiency anemia, unspecified; R60.0 Localized edema; R79.89 Other specified abnormal findings of blood chemistry; I10 Essential (primary) hypertension; E11.9 Type 2 diabetes mellitus without complications; E03.9 Hypothyroidism, unspecified; G89.29 Other chronic pain; M54.9 Dorsalgia, unspecified; Z88.8 Allergy status to other drugs, medicaments and biological substances; Z91.018 Allergy to other foods; Z79.899 Other long term (current) drug therapy; Z79.890 Hormone replacement therapy
CPT/HCPCS: 36415; 80053; 82310; 82607; 82728; 82746; 82947; 83036; 83540; 83550; 83735; 84100; 84439; 84443; 85025; 90653; 93005; A9270; G0008; J0612; J1938; J3475; J7030; 99222; 99238